=== PATIENT | female | born 1980 | race Caucasian/White ===

== ENCOUNTER → 2024-12-06 | Outpatient (CLI) | payer OTHER ==
[~2024-12-06] MED LIST: CYCL10 PO; HYDACE5 PO; IBUP600 PO; IBUP800 PO; PROM25 PO
== END ==
LOC: LAB SHORT 11:34 → LAB 11:34
PROVIDERS: Family Medicine
DX: Z12.4 Encounter for screening for malignant neoplasm of cervix (principal)
CPT/HCPCS: 87624; G0123; G0145